=== PATIENT | male | born 1960 ===

== ENCOUNTER 2017-07-20 07:13 | Emergency (ER) | payer OTHER ==
[2017-07-20 08:23] VITALS: BP 150/98
--- NOTE | 2017-07-20 09:37 | UC ---
Nathalia De La Fuente Jason, [facility] 07/20/17 at 0829 . General HPI - HPI Summary HPI Summary: In Room Note: This patient is a 57 year old M presenting to [facility] with a chief complaint of sore throat since 4 days ago. The patient states he has a sore throat flares at night and has gotten worse over time. He also developed a bilateral inner- thigh rash at the same time that is now oozing. The patient rates the pain 2/ 10 in severity. Symptoms aggravated by nothing. Symptoms alleviated by nothing. Patient reports productive cough. Patient denies chest pain, and fever. Patient includes he has a deviated septum. Upon physicians inquiry, patient includes he has been on antibiotics for a skin infection, but not on the inner-groin area. Additionally, the patient does not have tonsils. Physicians Note: Vital signs stable. Afebrile. BP 170/106. Pulse ox 98. Patient is on no anti- hypertensive medications. Visit history: noncontributory to present complaint. Multiple every day and food allergies. Rapid strep test result is negative. Patient states he has white coat syndrome. Repeat blood pressure, manually, was 150/98. Nurses Note: Patient states starting Friday afternoon he had a sore throat with headache. He is also coughing up phlegm. At the same time he developed a rash on his groin. He has been putting hydrocortisone cream on the rash, but it has not been helping. - History of Current Complaint Chief Complaint: [facility] Stated Complaint: FLU SYMPTOMS Time Seen by Provider: 07/20/17 07:44 Hx Obtained From: Patient Onset/Duration: Gradual Onset, Lasting Days - since 4 days ago, Still Present Pain Intensity: 2 Pain Location at: throat Associated Signs & Symptoms: Positive: Other - bilateral inner thigh rash, sore throrat, and cough. Patient denies chest pain, and fever. - Allergy/Home Medications Allergies/Adverse Reactions: Allergies Allergy/AdvReac Type Severity Reaction Status Date / Time cat dander Allergy Unknown Verified 07/20/17 07:52 Reaction Details mold Allergy Unknown Verified 07/20/17 07:52 Reaction Details shrimp Allergy Unknown Verified 07/20/17 07:52 Reaction Details tixocortol Allergy Unknown Verified 07/20/17 07:37 Reaction Details dust mites Allergy Unknown Uncoded 07/20/17 07:52 Reaction Details Home Medications: Home Medications ALPRAZolam [Xanax] 0.25 mg PO PRN 07/20/17 [History] Sertraline HCl [Zoloft] 50 mg PO DAILY 07/20/17 [History Confirmed 07/20/17] PMH/Surg Hx/FS Hx/Imm Hx Previously Healthy: No GI/ History: Other - abdominal hernia Other GI/ History: noncontributory Psychological History: Anxiety - Surgical History Surgical History: Yes Surgery Procedure, Year, and Place: hernia repair, tonsillectomy - Family History Known Family History: Positive: Other - mother had kidney cancer - Social History Alcohol Use: Weekly Alcohol Amount: 1 drink 2-3x/week Substance Use Type: Marijuana Substance Use Comment - Amount & Last Used: 4 days ago Smoking Status (MU): Former Smoker Review of Systems Constitutional: Negative - fever Skin: Rash - left inner groin ENT: Sore Throat Respiratory: Cough - productive Cardiovascular: Negative - chest pain All Other Systems Reviewed And Are Negative: Yes Physical Exam - Summary Physical Exam Summary: Appearance: The patient is well-appearing, is in no pain distress, and is well- nourished. Eyes: Conjunctiva are clear. ENT: The hearing is grossly normal, the pharynx is normal, and the TMs are normal. There is no muffled or hoarse voice. Neck: The neck is supple. Mild erythema of the pharynx. No lymphadenopathy. Respiratory: The chest is nontender. The lungs are clear, there are normal breath sounds, and there is no respiratory distress. Cardiovascular: Heart is regular rate and rhythm. There is no murmur. Abdomen: The abdomen is soft and nontender. There is no organomegaly. Bowel sounds: present Musculoskeletal: Strength is intact. The patient moves all extremities. Neurological: The patient is alert. Psychological: The patient displays age appropriate behavior Skin: Bilateral maculopapular rash at the upper inner thighs, with approximately 5 inches of erythema where the thighs touch and approximately 1.5 cm bilaterally of yellow crust consistent with impetigo. Triage Information Reviewed: Yes Vital Signs: Initial Vital Signs Temp 98.4 F 07/20/17 07:39 Pulse 74 07/20/17 07:39 Resp 20 07/20/17 07:39 BP 170/106 07/20/17 07:39 Pulse Ox 98 07/20/17 07:39 Vital Signs Reviewed: Yes Course/Dx - Course Course Of Treatment: Patient is a 57 year old male with a sore throat consistent with a viral pharyngitis. His bilateral inner thigh rash is either contact dermatitis or laurent eruption with evidence of impetigo, bilaterally. I will treat him with Lotrisone cream and Bactrian as well as 3 days of Keflex. He will follow up in 3 days if there is no resolution. Differential: cellulitis vs. impetigo vs contacts dermatitis vs laurent. Dx: 1. viral sore throat, 2. Contact dermatitis, 3. Impetigo. I discussed with the patient his blood pressure reading. He has his own home blood pressure device and follows his blood pressure closely. Patient had a hypertensive BP reading of (170/106); Patient was advised to follow up with PCP if his BP is above 140/90 within 1 day - 4 weeks. Medications have been included in the original chart and reviewed. Patient has been given an antibiotic because findings on physical examination and health history. The risks and benefits of antibiotic treatment have been discussed and patient has voiced understanding of these risks including the possibility of developing clostridium difficile enterocolitis. - Differential Dx - Multi-Symptom Provider Diagnoses: Dx: 1. viral sore throat, 2. Contact dermatitis, 3. Impetigo. Discharge - Sign-Out/Discharge Documenting (check all that apply): Discharge - Discharge Plan Condition: Stable Disposition: HOME Prescriptions: Cephalexin CAP* [Keflex 500 CAP*] 500 mg PO TID #9 cap MDD 3 Clotrimazole/Betamethasone* [Lotrisone Cream*] 1 applic TOPICAL BID #30 tube Mupirocin 2% OINT* [Bactroban 2 % Oint*] 1 applic TOPICAL TID #1 tube MDD 3 Patient Education Materials: Impetigo (ED), Contact Dermatitis (ED), Skin Yeast Infection (ED) Forms: *Work Release Referrals: Carlos Manuel Villatoro MD [Primary Care Provider] - Additional Instructions: Your blood pressure reading today was 170/106, indicating HYPERTENSION/ PREHYPERTENSION. Follow-up with your primary care provider within 4 weeks for blood pressure readings and further evaluation. - Billing Disposition and Condition Condition: STABLE Disposition: HOME The documentation as recorded by the Nathalia garcia Jason accurately reflects the service I personally performed and the decisions made by me, Eligio Naranjo MD.
== END 2017-07-20 09:00 | disposition home or self-care (01) ==
LOC: UCEAST 07:13
DX: J02.8 Acute pharyngitis due to other specified organisms (principal); R05 Cough; L25.9 Unspecified contact dermatitis, unspecified cause; L01.00 Impetigo, unspecified
CPT/HCPCS: 87651; 99212; G0463

== ENCOUNTER 2018-05-30 07:45 | Emergency (ER) | payer OTHER ==
[2018-05-30 07:54] VITALS: BP 168/109
--- NOTE | 2018-05-30 08:12 | UC ---
Throat Pain/Nasal Deonte HPI - HPI Summary HPI Summary: 58-year-old maleBB This is a 58-year-old male who complains of upper respiratory discomfort. He is on no antihypertensive medications. BP in VAY=619/109. Patient has anxiety and depression. Main complaint is nasal discharge and sinus tenderness. Denies temperature. Has a hx of removal of nasal septum. - History of Current Complaint Chief Complaint: UCRespiratory Stated Complaint: SINUS PAIN Time Seen by Provider: 05/30/18 08:10 Hx Obtained From: Patient Pain Intensity: 2 - Allergies/Home Medications Allergies/Adverse Reactions: Allergies Allergy/AdvReac Type Severity Reaction Status Date / Time cat dander Allergy Unknown Verified 11/20/17 14:45 Reaction Details mold Allergy Unknown Verified 11/20/17 14:45 Reaction Details shrimp Allergy Unknown Verified 11/20/17 14:45 Reaction Details tixocortol Allergy Unknown Verified 11/20/17 14:45 Reaction Details dust mites Allergy Unknown Uncoded 11/20/17 14:45 Reaction Details PMH/Surg Hx/FS Hx/Imm Hx Previously Healthy: Yes Cardiovascular History: Hypertension - 135/90 at home Neurological History: Migraine, Other - sleep apnea, now resolved Psychological History: Anxiety, Depression - Surgical History Surgical History: Yes Surgery Procedure, Year, and Place: hernia repair, tonsillectomy. DEVIATED SEPTUM - Family History Known Family History: Positive: Other - mother had kidney cancer - Social History Occupation: Employed Full-time - [employer] Alcohol Use: Occasionally Alcohol Amount: 1 drink 2-3x/week Substance Use Type: Marijuana Substance Use Comment - Amount & Last Used: 4 days ago Smoking Status (MU): Former Smoker Review of Systems All Other Systems Reviewed And Are Negative: Yes Constitutional: Positive: Negative. Negative: Fever, Chills Skin: Positive: Negative Eyes: Positive: Negative ENT: Positive: Negative, Sore Throat - post nasal drip, Sinus Congestion, Sinus Pain/Tenderness Respiratory: Positive: Negative Cardiovascular: Positive: Negative Gastrointestinal: Positive: Negative Genitourinary: Positive: Negative Motor: Positive: Negative Neurovascular: Positive: Negative Musculoskeletal: Positive: Negative Neurological: Positive: Negative Psychological: Positive: Negative Is Patient Immunocompromised?: No Physical Exam Triage Information Reviewed: Yes Vital Signs: Initial Vital Signs Temp 98.4 F 05/30/18 07:50 Pulse 80 02/02/19 07:50 Resp 17 05/30/18 07:50 BP 168/109 05/30/18 07:50 Pulse Ox 100 05/30/18 07:50 Vital Signs Reviewed: Yes Eye Exam: Normal ENT Exam: Normal ENT: Positive: Pharynx normal, Sinus tenderness - maxillary and frontal Dental Exam: Normal Neck exam: Normal Neck: Positive: 1 Respiratory Exam: Normal Respiratory: Positive: Chest non-tender, Lungs clear, Normal breath sounds Cardiovascular Exam: Normal Cardiovascular: Positive: RRR, No Murmur, Pulses Normal Abdominal Exam: Normal Abdomen Description: Positive: Nontender, No Organomegaly, Soft Musculoskeletal Exam: Normal Neurological Exam: Normal Psychological Exam: Normal Skin Exam: Normal Skin: Negative: Rashes Throat Pain/Nasal Course/Dx - Course Course Of Treatment: 58 yo with sinus complaints; dx with sinusitis; started on Z servando, an antibiotic he says works for him. Other instructions for clearning the sinuses given to him. Also elevated BP noted. Discussed. He takes his BP at home and it runs 135/90. He knows to recheck and he has discussed this with his caregiver. MEDICATIONS REVIEWED. BLOOD PRESSURE STATUS REVIEWED AND DISCUSSED. - Differential Dx/Diagnosis Differential Diagnosis/HQI/PQRI: Pharyngitis, Sinusitis Provider Diagnosis: Sinusitis Discharge - Sign-Out/Discharge Documenting (check all that apply): Patient Departure All imaging exams completed and their final reports reviewed: No Studies - Discharge Plan Condition: Stable Disposition: HOME Prescriptions: Azithromycin TAB* [Zithromax TAB*] 250 mg PO DAILY #6 tab Patient Education Materials: Sinusitis (ED) Referrals: Carlos Manuel Villatoro MD [Primary Care Provider] - Additional Instructions: WE DISCUSSED: PLEASE SEEK CARE AT THE EMERGENCY DEPARTMENT IF SYMPTOMS WORSEN OR IF NEW SYMPTOMS DEVELOP. FOLLOW UP WITH YOUR PRIMARY CARE PHYSICIAN IF CONDITION CONTINUES BEYOND 3 DAYS WITHOUT IMPROVEMENT. YOUR DIAGNOSIS IS: SINUSITIS; elevated blood pressure reading; continue to recheck as you are doing at home. YOUR PRESCRIPTION RECOMMENDATION IS: z servando; this may take 10-14 days to get better. OTHER INSTRUCTIONS: TRY TO CLEAR NOSE: AFRIN NASAL SPRAY: 2-3 SPRAYS PER NOSTRIL, TWICE A DAY FOR TWO DAYS ONLY. STAND UNDER SHOWER STREAM TO LOOSEN SECRETIONS. USE A VAPORIZOR. STAY AWAY FROM ANY SMOKE OR IRRITANTS. USE SALINE NASAL SPRAY TO KEEP FLOW OF MUCOUS FROM NOSTRILS AND SINUSES. CONSIDER USING NETI POT TO HELP WITH ALLERGIES AND CONGESTION IN THE NOSE. USE THIS THREE TIMES A WEEK. YOU CAN GET THIS AT [employer] IN [place] OR VARIOUS DRUGSTORES. DRINK LOTS OF WARM FLUIDS USEFUL HOME REMEDIES: WARM WATER GARGLES, WITH TSP OF SALT PER 8 OUNCES OF WATER, GARGLE FOR A FEW SECONDS AND SPIT OUT; GARGLE AND SPIT OUT; EVERY THREE HOURS. AND/OR: WARM WATER OR TEA, HONEY AND LEMON; 2-3 CUPS A DAY. RE-CHECK IN 1O DAYS NEEDED. RE-CHECK SOONER IF INCREASED PAIN OR TEMPERATURE. - Billing Disposition and Condition Condition: STABLE Disposition: Home
== END 2018-05-30 08:50 | disposition home or self-care (01) ==
LOC: UCEAST 07:45
DX: J32.9 Chronic sinusitis, unspecified (principal); I10 Essential (primary) hypertension; Z87.891 Personal history of nicotine dependence; Z88.8 Allergy status to other drugs, medicaments and biological substances; Z91.09 Other allergy status, other than to drugs and biological substances; Z91.013 Allergy to seafood
CPT/HCPCS: 99212; G0463